=== PATIENT | male | born 1965 | race Two or more races ===

== ENCOUNTER → 2019-12-10 | Outpatient (CLI) | payer MEDICAID ==
[~2019-12-10] MED LIST: ACET-66 PO; AMOX500C2 PO; ASCO500 PO; INSLAN SQ; LEVO750T68 PO; MULT1CAP32 PO; ZINC220C14 PO
[2019-12-10 17:08] LABS: BASOPHILS % (AUTO) 1.7 % (0.0-2.0); EOSINOPHILS % (AUTO) 9.3 % (1.0-6.0); HEMATOCRIT 35.5 % (41-53); HEMOGLOBIN 11.8 g/dL (13.5-17.5); LYMPHOCYTES # (AUTO) 2.2 K/uL (1.0-4.8); LYMPHOCYTES % (AUTO) 34.3 % (22.0-44.0); MEAN CORPUSCULAR HEMOGLOBIN 29.2 pg (26.0-34.0); MEAN CORPUSCULAR HGB CONC 33.2 G/dL (31.0-37.0); MEAN CORPUSCULAR VOLUME 88 fL (80-100); MONOCYTES # (AUTO) 0.4 K/uL (0.1-1.0); NEUTROPHILS # (AUTO) 3.1 K/uL (1.8-7.7); NEUTROPHILS % (AUTO) 48.7 % (40.0-70.0); PLATELET COUNT (AUTO) 267 K/uL (150-450); RED BLOOD CELL COUNT(AUTO) 4.04 MIL/uL (4.50-5.90); RED CELL DISTRIBUTION WIDTH 14.4 % (11.5-14.5)
[2019-12-10 19:13] LABS: ERYTHROCYTE SEDIMENTATION RATE 73 MM/HR (0-15)
== END | disposition home or self-care (01) ==
LOC: LABMN 16:33
PROVIDERS: ATTEND Podiatrist Foot & Ankle Surgery
DX: M86.8X7 Other osteomyelitis, ankle and foot (principal)
CPT/HCPCS: 85651